=== PATIENT | male | born 1930 | race Caucasian/White ===

== ENCOUNTER 2017-10-17 14:53 | Inpatient (IN) | payer OTHER ==
[2017-10-17 15:26] VITALS: BMI 40.4
--- NOTE | 2017-10-17 15:26 | PDOC ---
Rapid Medical Evaluation Time Seen by Provider: 10/17/17 15:22 Medical Evaluation: Allergies Allergy/AdvReac Type Severity Reaction Status Date / Time No Known Allergies Allergy Verified 09/24/12 09:22 10/17/17 15:23 87 year old male with a history of GERD, HTN, HLD here with abdominal cramping pain and 3 episodes of bright red blood per rectum today. V/s unremarkable. Conjunctivae pale. Abdomen soft, non-tender. -EKG -CXR -Labs including, CBC, CMP, PT/INR, T&S -To Main ED for further evaluation
[2017-10-17 16:07] LABS: URINE APPEARANCE CLEAR; URINE BILIRUBIN NEGATIVE (NEGATIVE); URINE BLOOD NEGATIVE (NEGATIVE); URINE COLOR LTYELLOW; URINE GLUCOSE (UA) NEGATIVE (NEGATIVE); URINE KETONE NEGATIVE (NEGATIVE); URINE LEUK ESTERASE NEGATIVE (NEGATIVE); URINE NITRITE NEGATIVE (NEGATIVE); URINE PROTEIN NEGATIVE (NEGATIVE); URINE UROBILINOGEN NEGATIVE mg/dL (0.2-1.0)
[2017-10-17 16:21] LABS: BASO % 0.3 % (0-2.0); EOS % 0.5 % (0-4.5); HEMATOCRIT 35.2 % (35.4-49); HEMOGLOBIN 11.8 GM/dL (11.7-16.9); LYMPH % 6.8 % (8-40); MCH 29.9 pg (25.7-33.7); MCHC 33.5 g/dl (32.0-35.9); MEAN CELL VOLUME 89.3 fl (80-96); MEAN PLT VOLUME 8.8 fl (7.5-11.1); NEUT % 88.4 % (42.8-82.8); PLATELET COUNT 157 K/MM3 (134-434); RBC 3.94 M/mm3 (4.00-5.60); WHITE BLOOD COUNT 8.6 K/mm3 (4.0-10.0)
[2017-10-17 16:53] LABS: INR 1.12 (0.82-1.09); PROTHROMBIN TIME (PATIENT) 12.6 SEC (9.98-11.88)
[2017-10-17 16:59] LABS: ALBUMIN 3.6 g/dl (3.4-5.0); ANION GAP 7 (8-16); BILIRUBIN,TOTAL 0.7 mg/dL (0.2-1.0); CALCIUM 8.2 mg/dL (8.5-10.1); CHLORIDE 104 mmol/L (98-107); CO2 29 mmol/L (21-32); CREATININE 1.3 mg/dL (0.7-1.3); GLUCOSE,RANDOM 108 mg/dL (74-106); POTASSIUM 4.4 mmol/L (3.5-5.1); SGPT/ALT 22 U/L (12-78); SODIUM 140 mmol/L (136-145); TOT PROT 7.1 g/dl (6.4-8.2)
--- NOTE | 2017-10-17 17:30 | EKG ---
Test Reason : Blood Pressure : / mmHG Vent. Rate : 077 BPM Atrial Rate : 077 BPM P-R Int : 136 ms QRS Dur : 150 ms QT Int : 418 ms P-R-T Axes : 000 -76 098 degrees QTc Int : 473 ms AV dual-paced rhythm ABNORMAL ECG WHEN COMPARED WITH ECG OF 17-NOV-2014 21:26, ELECTRONIC VENTRICULAR PACEMAKER HAS REPLACED SINUS RHYTHM VENT. RATE HAS INCREASED BY 27 BPM Confirmed by Gabino Garcia ([id number]) on 10/17/2017 5:30:04 PM Referred By: Confirmed By:Gabino Garcia
--- NOTE | 2017-10-17 17:46 | PDOC ---
History of Present Illness - General Chief Complaint: Rectal Bleed Stated Complaint: RECTAL BLEED Time Seen by Provider: 10/17/17 15:22 History Source: Patient Exam Limitations: No Limitations - History of Present Illness Travel History: No Initial Comments: 10/17/17 17:42 87-year-old male presents the ED with complaints of rectal bleeding 3 since this morning. Patient states initially had some straining with bowel movements along with constipation for the past 2 days and states this morning when he moved his bowels noted some bright red blood within the toilet on paper. Patient states had mild left lower quadrant cramping with episodes. Patient states then went about his day and while out experienced a crampy again and it went to the bathroom and noticed bright red blood in the toilet. Patient states the incident occurred again later on the day accompanied cramping and rectal bleeding. Patient states history of hemorrhoidectomy years ago but denies any history of anal fissures. Pt with hx of diverticulosis, colon polyp, PUD, and gastritis. Patient states was seen by Dr. Quintero in the past with his last colonoscopy being approximately 18 months ago. Patient states was told to come by his PCP Dr. Stafford for further evaluation. Patient currently denies chest pain, shortness of breath, weakness, dizziness, or fever. Patient states currently at antibiotics for a right lower extremity wound when he goes to wound care weekly for. Timing/Duration: reports: intermittent Quality: reports: mild, cramping Abdominal Pain Onset Location: reports: LLQ, periumbilical Pain Radiation: reports: no radiation Aggravating Factors: improves with: Defecation Alleviating Factors: improves with: None Past History - Travel Traveled outside of the country in the last 30 days: No Close contact w/someone who was outside of country & ill: No - Past Medical History Allergies/Adverse Reactions: Allergies Allergy/AdvReac Type Severity Reaction Status Date / Time No Known Allergies Allergy Verified 10/17/17 15:23 Home Medications: Ambulatory Orders Simvastatin [Zocor -] 20 mg PO HS 09/24/12 Omeprazole [Prilosec (RX)] 20 mg PO BID #0 capsule. 09/25/12 Allopurinol [Zyloprim -] 300 mg PO DAILY 12/27/12 Polyethylene Glycol 3350 [Miralax 119 gm Btl -] 17 gm PO DAILY #1 bottle Tamsulosin HCl [Flomax] 0.4 mg PO DAILY #30 capsule 10/19/17 metroNIDAZOLE [Flagyl -] 500 mg PO TID #18 tablet 10/19/17 Anemia: No Asthma: No Cancer: No Cardiac Disorders: No CVA: No COPD: No CHF: No Dementia: No Diabetes: No GI Disorders: Yes (COLON POLYP, HH, DIVERTICULOSIS, GASTRITIS, PEPTIC ULCER) Disorders: Yes (GOUT) HTN: Yes Hypercholesterolemia: Yes Liver Disease: No Seizures: No Thyroid Disease: No - Surgical History Abdominal Surgery: No Appendectomy: Yes (2012) Cardiac Surgery: Yes (PPM) Cholecystectomy: No Lung Surgery: No Neurologic Surgery: No Orthopedic Surgery: No - Suicide/Smoking/Psychosocial Hx Smoking Status: No Smoking History: Former smoker Have you smoked in the past 12 months: No Number of Cigarettes Smoked Daily: 0 If you are a former smoker, when did you quit?: over 35 years ago Information on smoking cessation initiated: No Hx Alcohol Use: Yes (Occasional) Drug/Substance Use Hx: No Substance Use Type: None Hx Substance Use Treatment: No Review of Systems - Review of Systems Able to Perform ROS?: Yes Constitutional: No: Symptoms Reported HEENTM: No: Symptoms Reported Respiratory: No: Symptoms reported Cardiac (ROS): No: Symptoms Reported ABD/GI: Yes: Rectal Bleeding, Abdominal cramping : No: Symptoms Reported Musculoskeletal: No: Symptoms Reported Integumentary: No: Symptoms Reported Neurological: No: Symptoms reported Endocrine: No: Symptoms Reported Hematologic/Lymphatic: No: Symptoms Reported *Physical Exam - Vital Signs Last Vital Signs Temp Pulse Resp BP Pulse Ox 98.3 F 80 20 110/60 98 10/17/17 17:10 10/17/17 17:10 10/17/17 17:10 10/17/17 17:10 10/17/17 17:10 - Physical Exam General Appearance: Yes: Nourished, Appropriately Dressed. No: Apparent Distress HEENT: positive: Pale Conjunctivae (mild) Respiratory/Chest: positive: Lungs Clear, Normal Breath Sounds. negative: Respiratory Distress, Accessory Muscle Use Cardiovascular: positive: Regular Rhythm, Regular Rate. negative: Murmur Gastrointestinal/Abdominal: positive: Normal Bowel Sounds, Soft. negative: Distended, Tenderness Rectal Exam: positive: normal rectal tone, heme positive stool (brb. No visible or palpable hemorrhoid. Rectal vault smooth without tenderness). negative: hemorrhoids Extremity: positive: Normal Capillary Refill, Pedal Edema (nonpitting bell) Integumentary: positive: Normal Color, Dry, Warm Neurologic: positive: Normal Mood/Affect, Motor Strength 5/5 (ambulatory) ED Treatment Course - LABORATORY CBC & Chemistry Diagram: 10/19/17 07:07 10/19/17 07:07 - ADDITIONAL ORDERS Additional order review: Laboratory Results 10/17/17 10/17/17 10/17/17 16:54 15:41 15:41 PT with INR 12.60 H INR 1.12 Urine Color Urine Appearance Urine pH Ur Specific [place] Urine Protein Urine Glucose (UA) Urine Ketones Urine Blood Urine Nitrite Urine Bilirubin Urine Urobilinogen Ur Leukocyte Esterase Stool Occult Blood Positive Blood Type A POSITIVE Antibody Screen Negative 10/17/17 15:35 PT with INR INR Urine Color Ltyellow Urine Appearance Clear Urine pH 5.0 Ur Specific [place] 1.010 Urine Protein Negative Urine Glucose (UA) Negative Urine Ketones Negative Urine Blood Negative Urine Nitrite Negative Urine Bilirubin Negative Urine Urobilinogen Negative Ur Leukocyte Esterase Negative Stool Occult Blood Blood Type Antibody Screen 10/17/17 15:41 RBC 3.94 L MCV 89.3 MCHC 33.5 RDW 15.0 MPV 8.8 Neutrophils % 88.4 H Lymphocytes % 6.8 L D Monocytes % 4.0 Eosinophils % 0.5 Basophils % 0.3 - RADIOLOGY Radiology Studies Ordered: Category Date Time Status ABDOMEN & PELVIS CT W/O CONTR [CT] Stat CT Scan 10/17/17 17:24 Ordered Medical Decision Making - Medical Decision Making 10/17/17 17:50 Patient here for evaluation of bright red blood 3 upon defecation today. Patient on exam had CT of 108/47 with conjunctiva. Patient also had bright red blood within the rectal vault patient ordered for type and screen, labs, stool cultures secondary to recent antibiotics to rule out infectious process, abdominal CT with by mouth contrast and IV fluids 10/17/17 17:52 Laboratory Tests 09/25/12 11/17/14 11/18/14 11:00 21:30 05:35 Hgb 11.7 12.7 11.8 Urine Blood Urine Nitrite Ur Leukocyte Esterase Stool Occult Blood Blood Type Antibody Screen 10/17/17 10/17/17 10/17/17 15:35 15:41 15:41 Hgb 11.8 Urine Blood Negative Urine Nitrite Negative Ur Leukocyte Esterase Negative Stool Occult Blood Blood Type A POSITIVE Antibody Screen Negative 10/17/17 16:54 Hgb Urine Blood Urine Nitrite Ur Leukocyte Esterase Stool Occult Blood Positive Blood Type Antibody Screen 10/17/17 18:[address] at 730pm. *DC/Admit/Observation/Transfer Diagnosis at time of Disposition: Rectal bleed - Discharge Dispostion Condition at time of disposition: Stable - Prescriptions - Referrals - Patient Instructions - Post Discharge Activity
[2017-10-17] MEDS ORDERED: SODIUM CHLORIDE 1,000 ML IV STA (17:51)
[2017-10-17 18:40] LABS: SGOT/AST 16 U/L (15-37)
[2017-10-17 18:41] LABS: ALK PHOS 79 U/L (45-117)
--- NOTE | 2017-10-17 19:41 | PDOC ---
ED Treatment Course - LABORATORY CBC & Chemistry Diagram: 10/17/17 15:41 10/17/17 15:41 - ADDITIONAL ORDERS Additional order review: Laboratory Results 10/17/17 10/17/17 10/17/17 16:54 15:41 15:41 PT with INR INR Sodium 140 Potassium 4.4 Chloride 104 Carbon Dioxide 29 Anion Gap 7 L Creatinine 1.3 Creat Clearance w eGFR 52.47 Random Glucose 108 H Calcium 8.2 L Total Bilirubin 0.7 D AST 16 D ALT 22 D Alkaline Phosphatase 79 D Total Protein 7.1 Albumin 3.6 Urine Color Urine Appearance Urine pH Ur Specific [place] Urine Protein Urine Glucose (UA) Urine Ketones Urine Blood Urine Nitrite Urine Bilirubin Urine Urobilinogen Ur Leukocyte Esterase Stool Occult Blood Positive Blood Type A POSITIVE Antibody Screen Negative 10/17/17 10/17/17 15:41 15:35 PT with INR 12.60 H INR 1.12 Sodium Potassium Chloride Carbon Dioxide Anion Gap Creatinine Creat Clearance w eGFR Random Glucose Calcium Total Bilirubin AST ALT Alkaline Phosphatase Total Protein Albumin Urine Color Ltyellow Urine Appearance Clear Urine pH 5.0 Ur Specific [place] 1.010 Urine Protein Negative Urine Glucose (UA) Negative Urine Ketones Negative Urine Blood Negative Urine Nitrite Negative Urine Bilirubin Negative Urine Urobilinogen Negative Ur Leukocyte Esterase Negative Stool Occult Blood Blood Type Antibody Screen 10/17/17 15:41 RBC 3.94 L MCV 89.3 MCHC 33.5 RDW 15.0 MPV 8.8 Neutrophils % 88.4 H Lymphocytes % 6.8 L D Monocytes % 4.0 Eosinophils % 0.5 Basophils % 0.3 - Medications Given in the ED: ED Medications Discontinued Medications Generic Name Dose Route Start Last Admin Trade Name Freq PRN Reason Stop Dose Admin Sodium Chloride 1,000 mls @ 1,000 mls/hr 10/17/17 17:51 10/17/17 18:29 Normal Saline - IV 10/17/17 18:50 1,000 mls/hr ASDIR STA Administration Progress Note - Progress Note Progress Note: I have received report from TASHI Taylor regarding this patient. Pt's initial chief complaint: rectal bleeding Pt's work up completed prior to sign out: labs, guiac, EKG, CXR Pt treatment given from prior staff: IV fluids Pt plan to be completed: Awaiting CT of abd/pelvis Dispo: Most likely admission to Dr. Stafford Medical Decision Making - Medical Decision Making A/P: 87 y/o afebrile male with 3 episodes of rectal bleeding since this morning. Patient was initially evaluated by SIGNAL MANAGER Claudia. EKG and labs done - both stable. Dr. Stafford aware of the patient and requesting call back for admission upon completion of CT scan of abd/pelvis. CT abd/pelvis IMPRESSION: No bowel obstruction. Diverticulosis with no evidence of diverticulitis. Mild wall thickening in the proximal sigmoid colon and pericolonic fat stranding along the descending colon/proximal sigmoid colon are grossly similar to 10/04/12 CT, likely chronic changes of diverticulosis. Cholelithiasis. No CT evidence of acute cholecystitis. No CBD dilatation. Spoke with Dr. Leavitt. She accepts admission. Wants 2 large bores IVs. Patient and family made aware of the plan will admit to tele with james and terri consults. *DC/Admit/Observation/Transfer Diagnosis at time of Disposition: Rectal bleed - Discharge Dispostion Condition at time of disposition: Stable Admit: Yes - Referrals - Patient Instructions - Post Discharge Activity
--- NOTE | 2017-10-17 21:36 | PN ---
Teaching Attending Note Name of Resident: Ld Nuñez ATTENDING PHYSICIAN STATEMENT I saw and evaluated the patient. I reviewed the resident's note and discussed the case with the resident. I agree with the resident's findings and plan as documented. SUBJECTIVE: 87 M with pmhx of GERD, HTN, HLD, RLE wound on anx who presents with BRBPR. States he had arond 3 movements of diarrhea and bright red bloos with it. Denies any dizziness or lightheadedness. No chest pain or pressure. Pt,. has been on Antibiotics of a RLE wound, but does not know which ones OBJECTIVE: Physical: VS: Vital Signs Period Temp Pulse Resp BP Sys/Kilpatrick Pulse Ox Last 24 Hr 97.6 F-98.3 F 64-80 18-20 108-110/47-60 96-98 GEN: NAD, Resting in bed, AAox3 HEENT:NCAT, PERRL, throat without erythema or exudates CARD: RRR S1, S2 RESP: CTAB ABD: BSx4, NTd to palpation EXT:- C/C/E, RLE wound RECTAL: Deferred by patient CBCD WBC 8.6 K/mm3 (4.0-10.0) D 10/17/17 15:41 RBC 3.94 M/mm3 (4.00-5.60) L 10/17/17 15:41 Hgb 11.8 GM/dL (11.7-16.9) 10/17/17 15:41 Hct 35.2 % (35.4-49) L 10/17/17 15:41 MCV 89.3 fl (80-96) 10/17/17 15:41 MCHC 33.5 g/dl (32.0-35.9) 10/17/17 15:41 RDW 15.0 % (11.9-15.9) 10/17/17 15:41 Plt Count 157 K/MM3 (134-434) D 10/17/17 15:41 MPV 8.8 fl (7.5-11.1) 10/17/17 15:41 CMP Sodium 140 mmol/L (136-145) 10/17/17 15:41 Potassium 4.4 mmol/L (3.5-5.1) 10/17/17 15:41 Chloride 104 mmol/L (98-107) 10/17/17 15:41 Carbon Dioxide 29 mmol/L (21-32) 10/17/17 15:41 Anion Gap 7 (8-16) L 10/17/17 15:41 Creatinine 1.3 mg/dL (0.7-1.3) 10/17/17 15:41 Creat Clearance w eGFR 52.47 (>60) 10/17/17 15:41 Calcium 8.2 mg/dL (8.5-10.1) L 10/17/17 15:41 Total Bilirubin 0.7 mg/dL (0.2-1.0) D 10/17/17 15:41 AST 16 U/L (15-37) D 10/17/17 15:41 ALT 22 U/L (12-78) D 10/17/17 15:41 Alkaline Phosphatase 79 U/L (45-117) D 10/17/17 15:41 Total Protein 7.1 g/dl (6.4-8.2) 10/17/17 15:41 Albumin 3.6 g/dl (3.4-5.0) 10/17/17 15:41 ABD/PELVIS CT: Incompletely imaged pericardial effusion, likely small in size, Cardimegaly, mod. coronary calcific atherosclerosis and bipolar ppm leads. Kidneys Cyst. Mild fusiform aneyrysmal enlargement of infrarenal abdominal aorta measuring 2 cm. L. Common iliac measuring 2.4 cm in diameter. ASSESSMENT AND PLAN: 87 M with pmhx of GERD, HTN, HLD, RLE wound on anx who presents with BRBPR 1.) BRBPR - NPO - 2 Large Bore IVs - Type & Screen - Coags - CBC Q8 - GI Consult - Hold ASA - Transfuse Hgb<8 2.) Diarrhea - On abx (pt. does not know which ones) - C. Diff, Stool Studies - Flagyl 3.) RLE wound - ID consult - Unknown Which abx. pt was on - Wound care consult for reccs 4.) Kidney Cysts - Outpt. Fu 5.) HLD - Hold Statin 6.) Dvt Ppx - [facility] Place in [place]
--- NOTE | 2017-10-17 22:42 | HP ---
CHIEF COMPLAINT: Rectal bleed PCP: Dr salazar HISTORY OF PRESENT ILLNESS: 87-year-old male with PMH of diverticulosis and constipation came to hospital with a complaint of rectal bleed. Patient reports that he has 3 episodes since morning with some abdominal cramps, large in quantity, mixed with watery stool, Denies pain on defecation, denies pain abdomen, Denies nausea, vomiting, no pain on defecation. Denies fever and chills , denies loss of weight. Denies loss of apatite, Denies feeling of incomplete defecation, Denies morning diarrhoea. Denies easy bruising and bleeding, Denies any similar previous episodes. Patient also reports that he is on antibiotics from last 3 week for wound on his leg. Also reports colonoscopy was done in 2016 and it showed diverticulosis and polys ER course was notable for: (1)cbc, cmp, inr (2)CT abdomen Recent Travel: no PAST MEDICAL HISTORY: htn, hld, gerd, gout PAST SURGICAL HISTORY: LL varicose vein, haemorrhoidectomy, appendectomy, pace maker in 2014 Social History: Smoking: smoked for 30 years 1/2 pack a day. stopped 30 years ago Alcohol: occasional Drugs: no Family History: father has stomach cancer diagnosed at age of 79 Allergies No Known Allergies Allergy (Verified 10/17/17 15:23) HOME MEDICATIONS: Home Medications Medication Instructions Recorded Amlodipine Besylate [Norvasc -] 5 mg PO DAILY 09/24/12 Furosemide [Lasix -] 40 mg PO DAILY 09/24/12 Simvastatin [Zocor -] 20 mg PO HS 09/24/12 Terazosin HCl 10 mg PO HS 09/24/12 Omeprazole [Prilosec (RX)] 20 mg PO BID #0 capsule. 09/25/12 Allopurinol [Zyloprim -] 300 mg PO DAILY 12/27/12 Aspirin [ASA -] 81 mg PO DAILY #0 tab.chew 01/01/16 Polyethylene Glycol 3350 [Miralax 17 gm PO DAILY #1 bottle 01/01/16 (For Daily Use) -] Wheat Dextrin [Benefiber] 1 each PO BID #0 powd.pack 01/01/16 Losartan Potassium 100 mg PO DAILY 10/17/17 REVIEW OF SYSTEMS CONSTITUTIONAL: Absent: fever, chills, diaphoresis, generalized weakness, HEENT: Absent: rhinorrhea, nasal congestion, throat pain, throat swelling, CARDIOVASCULAR: Absent: chest pain, syncope, palpitations, irregular heart rate, RESPIRATORY: Absent: cough, shortness of breath, dyspnea with exertion, GASTROINTESTINAL: Absent: abdominal pain, abdominal distension, nausea, vomiting, d GENITOURINARY: Absent: dysuria, frequency, urgency, hesitancy, hematuria, flank pain, genital pain MUSCULOSKELETAL: chronic b/l lower limb swelling SKIN: Absent: rash, itching, pallor HEMATOLOGIC/IMMUNOLOGIC: Absent: easy bleeding, easy bruising, ENDOCRINE: Absent: unexplained weight gain, unexplained weight loss, PHYSICAL EXAMINATION Vital Signs - 24 hr 10/17/17 10/17/17 10/17/17 15:23 16:55 17:10 Temperature 97.6 F 98.3 F Pulse Rate 79 Pulse Rate [ 80 Left Radial] Respiratory 18 20 Rate Blood Pressure 108/47 Blood Pressure 110/60 [Left Arm] O2 Sat by Pulse 96 98 98 Oximetry (%) 10/17/17 10/17/17 18:29 19:34 Temperature Pulse Rate Pulse Rate [ 64 Left Radial] Respiratory 20 Rate Blood Pressure Blood Pressure 108/59 [Left Arm] O2 Sat by Pulse 97 96 Oximetry (%) GENERAL: Awake, alert, and fully oriented, in no acute distress. HEAD: Normal with no signs of trauma. EYES: Pupils equal, round and reactive to light, extraocular movements intact, sclera anicteric, conjunctiva clear. No lid lag. EARS, NOSE, THROAT: Ears normal, nares patent, oropharynx clear without exudates. Moist mucous membranes. NECK: Normal range of motion, no JVD, or masses. LUNGS: Breath sounds equal, clear to auscultation bilaterally. No wheezes, and no crackles. No accessory muscle use. HEART: s1s2 normal ABDOMEN: Soft, nontender, not distended, normoactive bowel sounds, no guarding, no rebound, no masses. Rectal exam no active bleed, UPPER EXTREMITIES: 2+ pulses, warm, well-perfused. LOWER EXTREMITIES: warm, No calf tenderness.chronic edema b/l lower limb, Right leg has bandage for wound SKIN: Warm, dry, Laboratory Results - last 24 hr 10/17/17 10/17/17 10/17/17 15:35 15:41 15:41 WBC 8.6 D RBC 3.94 L Hgb 11.8 Hct 35.2 L MCV 89.3 MCH 29.9 MCHC 33.5 RDW 15.0 Plt Count 157 D MPV 8.8 Neutrophils % 88.4 H Lymphocytes % 6.8 L D Monocytes % 4.0 Eosinophils % 0.5 Basophils % 0.3 PT with INR 12.60 H INR 1.12 Sodium Potassium Chloride Carbon Dioxide Anion Gap Creatinine Creat Clearance w eGFR Random Glucose Calcium Total Bilirubin AST ALT Alkaline Phosphatase Total Protein Albumin Urine Color Ltyellow Urine Appearance Clear Urine pH 5.0 Ur Specific [place] 1.010 Urine Protein Negative Urine Glucose (UA) Negative Urine Ketones Negative Urine Blood Negative Urine Nitrite Negative Urine Bilirubin Negative Urine Urobilinogen Negative Ur Leukocyte Esterase Negative Stool Occult Blood Blood Type Antibody Screen 10/17/17 10/17/17 10/17/17 15:41 15:41 16:54 WBC RBC Hgb Hct MCV MCH MCHC RDW Plt Count MPV Neutrophils % Lymphocytes % Monocytes % Eosinophils % Basophils % PT with INR INR Sodium 140 Potassium 4.4 Chloride 104 Carbon Dioxide 29 Anion Gap 7 L Creatinine 1.3 Creat Clearance w eGFR 52.47 Random Glucose 108 H Calcium 8.2 L Total Bilirubin 0.7 D AST 16 D ALT 22 D Alkaline Phosphatase 79 D Total Protein 7.1 Albumin 3.6 Urine Color Urine Appearance Urine pH Ur Specific [place] Urine Protein Urine Glucose (UA) Urine Ketones Urine Blood Urine Nitrite Urine Bilirubin Urine Urobilinogen Ur Leukocyte Esterase Stool Occult Blood Positive Blood Type A POSITIVE Antibody Screen Negative ASSESSMENT/PLAN: 87-year-old male with PMH of diverticulosis and constipation on antibiotics for RLE wound for 3 week came to hospital with a complaint of rectal bleed. Rectal bleed. : multifactorial diverticular bleed, angiodysplasia, polyp, monitor haemoglobin monitor vitals. monitor intake and output type and screen INR 1.1 get aptt two large bore iV canula NPO for now hold aspirin GI consult transfuse if Hb <8 Diarrhoea stool culture, ova and parasit stool for c diff.( on antibiotic but dont know which one, last one taken this morning) or diarrhoea could also be from blood. will give him metronidazole for c diff cover R lower extremity wound comes to [facility] every . Follows Dr Cm HTN on losartan 100mg daily toprol xl 25mg daily Terazosin hcl 10mg daily hs hold BP meds for now. GERD on omeprazole 20 mg prn HLD hold statin for now on simvastatin 20mg daily h/o GOUT on allopurinol 300mg daily hold for now patient is npo dependent edema b/l lower limb on lasix electrolyte: repeat in am nutrition : npo dvt pro scd gi pro: pepcid dispo: med surg Visit type - Emergency Visit Emergency Visit: Yes Care time: The patient presented to the Emergency Department on the above date and was hospitalized for further evaluation of their emergent condition. - New Patient This patient is new to me today: Yes Date on this admission: 10/17/17 - Critical Care Critical Care patient: No
[2017-10-17] MEDS ORDERED: metroNIDAZOLE 250 MG TABLET ONE (23:06)
[2017-10-17 23:20] LABS: BLOOD UREA NITROGEN 40 mg/dL (7-18)
[2017-10-17] MEDS: metroNIDAZOLE 250 MG TABLET PO SCH (23:23)
[2017-10-18 07:26] LABS: BASO % 0.5 % (0-2.0); EOS % 2.2 % (0-4.5); HEMATOCRIT 31.5 % (35.4-49); HEMOGLOBIN 10.4 GM/dL (11.7-16.9); MCH 29.6 pg (25.7-33.7); MCHC 33.1 g/dl (32.0-35.9); MEAN CELL VOLUME 89.3 fl (80-96); MEAN PLT VOLUME 8.6 fl (7.5-11.1); MONO % 7.2 % (3.8-10.2); NEUT % 76.1 % (42.8-82.8); PLATELET COUNT 125 K/MM3 (134-434); RBC 3.52 M/mm3 (4.00-5.60); RDW 14.8 % (11.9-15.9); WHITE BLOOD COUNT 5.4 K/mm3 (4.0-10.0)
[2017-10-18] MEDS: metroNIDAZOLE 250 MG TABLET PO SCH ×3 (08:00→21:35)
[2017-10-18] MEDS: SODIUM CHLORIDE 1,000 ML IV SCH (08:00)
[2017-10-18 08:05] LABS: ALBUMIN 3.3 g/dl (3.4-5.0); ANION GAP 6 (8-16); BLOOD UREA NITROGEN 38 mg/dL (7-18); CALCIUM 7.9 mg/dL (8.5-10.1); CHLORIDE 105 mmol/L (98-107); CO2 30 mmol/L (21-32); CREATININE 1.1 mg/dL (0.7-1.3); GLUCOSE,RANDOM 100 mg/dL (74-106); PHOSPHOROUS 3.3 mg/dL (2.5-4.9); POTASSIUM 4.6 mmol/L (3.5-5.1); SGOT/AST 16 U/L (15-37); SGPT/ALT 20 U/L (12-78); SODIUM 141 mmol/L (136-145)
[2017-10-18 08:06] LABS: ALK PHOS 72 U/L (45-117); BILIRUBIN,TOTAL 0.9 mg/dL (0.2-1.0); TOT PROT 6.3 g/dl (6.4-8.2)
[2017-10-18] MEDS ORDERED: metroNIDAZOLE 250 MG TABLET ONE (08:10)
--- NOTE | 2017-10-18 10:21 | PN ---
Progress Note, Physician History of Present Illness: 87-year-old male with PMH of diverticulosis and constipation came to hospital with a complaint of rectal bleed. Patient reports that he has 3 episodes since morning with some abdominal cramps, large in quantity, mixed with watery stool , Denies pain on defecation, denies pain abdomen, Denies nausea, vomiting, no pain on defecation. Denies fever and chills, denies loss of weight. Denies loss of apatite, Denies feeling of incomplete defecation, Denies morning diarrhoea. Denies easy bruising and bleeding, Denies any similar previous episodes. Patient also reports that he is on antibiotics from last 3 week for wound on his leg. Also reports colonoscopy was done in 2016 and it showed diverticulosis and polyps - Current Medication List Current Medications: Active Medications Famotidine/Sodium Chloride (Pepcid 20 Mg Premixed Ivpb -) 20 mg in 50 mls @ 100 mls/hr IVPB BID SABINA Sodium Chloride (Normal Saline -) 1,000 mls @ 50 mls/hr IV ASDIR [facility] Stop: 10/19/17 06:49 Last Admin: 10/18/17 08:00 Dose: 50 mls/hr Metronidazole (Flagyl -) 500 mg PO TID [facility] Last Admin: 10/18/17 08:00 Dose: 500 mg - Objective Vital Signs: Vital Signs Temperature 97.5 F L 10/18/17 07:02 Pulse Rate 59 L 10/18/17 08:30 Respiratory Rate 16 10/18/17 08:30 Blood Pressure 115/54 10/18/17 08:30 O2 Sat by Pulse Oximetry (%) 100 10/18/17 08:30 Cardiovascular: Yes: Murmur, S1, S2 Respiratory: Yes: Regular, CTA Bilaterally Gastrointestinal: Yes: Normal Bowel Sounds, Soft. No: Tenderness Edema: No Labs: CBC, BMP 10/18/17 06:00 10/18/17 06:00 INR, PTT INR 1.12 (0.82-1.09) 10/17/17 15:41 Problem List - Problems (1) S/P placement of cardiac pacemaker Assessment/Plan: MONITOR Code(s): Z95.0 - PRESENCE OF CARDIAC PACEMAKER (2) Rectal bleed Assessment/Plan: R/O C.DIF FOLLOW CBC GI CONSULT HOLD OFF ON AC Code(s): K62.5 - HEMORRHAGE OF ANUS AND RECTUM (3) HTN (hypertension) Code(s): I10 - ESSENTIAL (PRIMARY) HYPERTENSION Qualifiers: Hypertension type: essential hypertension Qualified Code(s): I10 - Essential (primary) hypertension
--- NOTE | 2017-10-18 11:12 | CONSULT ---
Addendum entered and electronically signed by Jonathan Irvin, RESIDENT 15:34: rectal exam:small amount of brown stool with no blood in rectal vault. internal hemorrhoids noted. large smooth prostate. Original Note: Consultation: REQUESTING PROVIDER: CONSULT REQUEST: We have been asked to medically evaluate this patient for GI. HISTORY OF PRESENT ILLNESS: 87 yo M presented with bright red blood per rectum. He states that yesterday he had some cramping pain then proceeded to have 3 bloody BM's. Stool was brown and loose with bright red blood, enough to fill toilet. Since then he has had no blood in BM's but does stain paper when he wipes. He is not currently on any blood thinners except a 81mg ASA he has been taking for several years. He has history of bleeding hemorrhoids s/p hemorrhoidectomy. His last colonoscopy was 12/25 that showed recurrent hemorrhoids, polyps and diverticulosis. Family history is significant for stomach cancer in his father. Of note he is seen at wound care for RLE cellulits and has been on Abx for several weeks. No recent travel. Denies CP,MORROW, palpitations, fevers,abdominal pain, N/V/D/C. PMHx: HTN, HLD, BPH, Gout, GERD and CHF PSx: Hemorrhoidectomy, pacemaker, removal of vericose veins, and appendectomy. Social: 25 pack year h/o smoking(quit 37 y/a), social drinker, no drugs. 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 FHx: father(stomach cancer) REVIEW OF SYSTEMS: CONSTITUTIONAL: Absent: fever, chills, diaphoresis, generalized weakness, malaise, loss of appetite, weight change HEENT: Absent: rhinorrhea, nasal congestion, throat pain, throat swelling, difficulty swallowing, mouth swelling, ear pain, eye pain, visual changes CARDIOVASCULAR: Absent: chest pain, syncope, palpitations, irregular heart rate, lightheadedness , peripheral edema RESPIRATORY: Absent: cough, shortness of breath, dyspnea with exertion, orthopnea, wheezing, stridor, hemoptysis GASTROINTESTINAL:+hematochezia Absent: abdominal pain, abdominal distension, nausea, vomiting, diarrhea, constipation, melena, GENITOURINARY: Absent: dysuria, frequency, urgency, hesitancy, hematuria, flank pain, genital pain MUSCULOSKELETAL: Absent: myalgia, arthralgia, joint swelling, back pain, neck pain SKIN: Absent: rash, itching, pallor HEMATOLOGIC/IMMUNOLOGIC: Absent: easy bleeding, easy bruising, lymphadenopathy, frequent infections ENDOCRINE: Absent: unexplained weight gain, unexplained weight loss, heat intolerance, cold intolerance NEUROLOGIC: Absent: headache, focal weakness or paresthesias, dizziness, unsteady gait, seizure, mental status changes, bladder or bowel incontinence PSYCHIATRIC: Absent: anxiety, depression, suicidal or homicidal ideation, hallucinations. PHYSICAL EXAMINATION Vital Signs - 24 hr 10/17/17 10/17/17 10/17/17 15:23 16:55 17:10 Temperature 97.6 F 98.3 F Pulse Rate 79 Pulse Rate [ Apical] Pulse Rate [ 80 Left Radial] Respiratory 18 20 Rate Blood Pressure 108/47 Blood Pressure 110/60 [Left Arm] O2 Sat by Pulse 96 98 98 Oximetry (%) 10/17/17 10/17/17 10/18/17 18:29 19:34 06:30 Temperature 98.1 F Pulse Rate Pulse Rate [ Apical] Pulse Rate [ 64 86 Left Radial] Respiratory 20 19 Rate Blood Pressure Blood Pressure 108/59 116/84 [Left Arm] O2 Sat by Pulse 97 96 98 Oximetry (%) 10/18/17 10/18/17 10/18/17 07:02 08:30 10:33 Temperature 97.5 F L Pulse Rate 61 Pulse Rate [ 59 L Apical] Pulse Rate [ 64 Left Radial] Respiratory 14 16 18 Rate Blood Pressure 132/61 Blood Pressure 133/71 115/54 [Left Arm] O2 Sat by Pulse 98 100 95 Oximetry (%) GENERAL:AAOx3, NAD HEAD: NC/AT. EYES: PERRLA, EOMI, scleral anicteric EARS, NOSE, THROAT: Moist mucous membranes. NECK: supple , no JVD LUNGS:CTAB, no wheezing or rales. HEART: RRR, NL S1S2, no m/g/r ABDOMEN: Obese,Soft, NT/ND, NL BS, no masses Rectal exam MUSCULOSKELETAL: No CVA tenderness. LOWER EXTREMITIES: 2+ pulses,chronic venous stasis changes BL LE. Right LE bandaged . 2+ EDEMA BL NEUROLOGICAL: Cranial nerves II-XII intact. Normal speech. PSYCHIATRIC: Cooperative. Good eye contact. Appropriate mood and affect. Laboratory Results - last 24 hr 10/17/17 10/17/17 10/17/17 15:35 15:41 15:41 WBC 8.6 D RBC 3.94 L Hgb 11.8 Hct 35.2 L MCV 89.3 MCH 29.9 MCHC 33.5 RDW 15.0 Plt Count 157 D MPV 8.8 Neutrophils % 88.4 H Lymphocytes % 6.8 L D Monocytes % 4.0 Eosinophils % 0.5 Basophils % 0.3 PT with INR 12.60 H INR 1.12 PTT (Actin FS) Sodium Potassium Chloride Carbon Dioxide Anion Gap BUN Creatinine Creat Clearance w eGFR Random Glucose Calcium Phosphorus Magnesium Total Bilirubin AST ALT Alkaline Phosphatase Total Protein Albumin Urine Color Ltyellow Urine Appearance Clear Urine pH 5.0 Ur Specific [place] 1.010 Urine Protein Negative Urine Glucose (UA) Negative Urine Ketones Negative Urine Blood Negative Urine Nitrite Negative Urine Bilirubin Negative Urine Urobilinogen Negative Ur Leukocyte Esterase Negative Stool Occult Blood Blood Type Antibody Screen 10/17/17 10/17/17 10/17/17 15:41 15:41 16:54 WBC RBC Hgb Hct MCV MCH MCHC RDW Plt Count MPV Neutrophils % Lymphocytes % Monocytes % Eosinophils % Basophils % PT with INR INR PTT (Actin FS) Sodium 140 Potassium 4.4 Chloride 104 Carbon Dioxide 29 Anion Gap 7 L BUN 40 H Creatinine 1.3 Creat Clearance w eGFR 52.47 Random Glucose 108 H Calcium 8.2 L Phosphorus Magnesium Total Bilirubin 0.7 D AST 16 D ALT 22 D Alkaline Phosphatase 79 D Total Protein 7.1 Albumin 3.6 Urine Color Urine Appearance Urine pH Ur Specific [place] Urine Protein Urine Glucose (UA) Urine Ketones Urine Blood Urine Nitrite Urine Bilirubin Urine Urobilinogen Ur Leukocyte Esterase Stool Occult Blood Positive Blood Type A POSITIVE Antibody Screen Negative 10/18/17 10/18/17 10/18/17 06:00 06:00 06:00 WBC 5.4 D RBC 3.52 L Hgb 10.4 L D Hct 31.5 L MCV 89.3 MCH 29.6 MCHC 33.1 RDW 14.8 Plt Count 125 L D MPV 8.6 Neutrophils % 76.1 Lymphocytes % 14.0 D Monocytes % 7.2 Eosinophils % 2.2 D Basophils % 0.5 PT with INR INR PTT (Actin FS) 36.8 H Sodium 141 Potassium 4.6 Chloride 105 Carbon Dioxide 30 Anion Gap 6 L BUN 38 H Creatinine 1.1 Creat Clearance w eGFR > 60 Random Glucose 100 Calcium 7.9 L Phosphorus 3.3 Magnesium 2.0 Total Bilirubin 0.9 D AST 16 ALT 20 Alkaline Phosphatase 72 Total Protein 6.3 L Albumin 3.3 L Urine Color Urine Appearance Urine pH Ur Specific [place] Urine Protein Urine Glucose (UA) Urine Ketones Urine Blood Urine Nitrite Urine Bilirubin Urine Urobilinogen Ur Leukocyte Esterase Stool Occult Blood Blood Type Antibody Screen Active Medications Generic Name Dose Route Start Last Admin Trade Name Dago PRN Reason Stop Dose Admin Famotidine/Sodium Chloride 20 mg in 50 mls @ 100 mls/hr 10/18/17 10:00 Pepcid 20 Mg Premixed Ivpb - IVPB BID SABINA Sodium Chloride 1,000 mls @ 50 mls/hr 10/18/17 07:00 10/18/17 08:00 Normal Saline - IV 10/19/17 06:49 50 mls/hr ASDIR SABINA Administration Metronidazole 500 mg 10/17/17 22:45 10/18/17 08:00 Flagyl - PO 500 mg TID SABINA Administration IMAGING: * CT Abdomen : 1. No bowel obstruction. Diverticulosis with no evidence of diverticulitis. Mild wall thickening in the proximal sigmoid colon and pericolonic fat stranding along the descending colon/proximal sigmoid colon are grossly similar to 10/04/2012 CT, likely chronic changes of diverticulosis. 2. Cholelithiasis. No CT evidence of acute cholecystitis. No CBD dilatation. 3. Incompletely imaged pericardial effusion, likely small in size. A chamber cardiomegaly. At least moderate coronary artery calcific atherosclerosis. 4. Mild fusiform aneurysmal enlargement of the infrarenal abdominal aorta measuring 3 cm in diameter and left common iliac artery measuring 2.4 cm in diameter. Reported By: Rina Iraheta DO 10/17/172102 Vero Taylor Technologist: Adarsh Harvey Transcribed Date/Time: 10/17/172102 Checkroom Attendant: Rina Iraheta DO Printed Date/Time: By: Signed by: Rina Iraheta Signed on: 17-Oct-2017 ASSESSMENT/ 87 yo M presents with BRBPR x3 * Given his presentation and h/o of hemorrhoids most likely hemorrhoidal bleed. * No significant drop in H/H * No clinical signs of C-diff given recent abx use. PLAN: * Will continue to observe for recurrent bleeding * Will hold off on colonoscopy for now unless continues to bleed. * Will repeat H/H in AM * Advance diet to clear liquids. Dispo: We will continue to follow the patient. Thank you for this consultative opportunity. <Jonathan Irvin - Last Filed: 10/18/17 14:48> Consultation: REQUESTING PROVIDER: CONSULT REQUEST: We have been asked to medically evaluate this patient for ( specify). HISTORY OF PRESENT ILLNESS: REVIEW OF SYSTEMS: CONSTITUTIONAL: Absent: fever, chills, diaphoresis, generalized weakness, malaise, loss of appetite, weight change HEENT: Absent: rhinorrhea, nasal congestion, throat pain, throat swelling, difficulty swallowing, mouth swelling, ear pain, eye pain, visual changes CARDIOVASCULAR: Absent: chest pain, syncope, palpitations, irregular heart rate, lightheadedness , peripheral edema RESPIRATORY: Absent: cough, shortness of breath, dyspnea with exertion, orthopnea, wheezing, stridor, hemoptysis GASTROINTESTINAL: Absent: abdominal pain, abdominal distension, nausea, vomiting, diarrhea, constipation, melena, hematochezia GENITOURINARY: Absent: dysuria, frequency, urgency, hesitancy, hematuria, flank pain, genital pain MUSCULOSKELETAL: Absent: myalgia, arthralgia, joint swelling, back pain, neck pain SKIN: Absent: rash, itching, pallor HEMATOLOGIC/IMMUNOLOGIC: Absent: easy bleeding, easy bruising, lymphadenopathy, frequent infections ENDOCRINE: Absent: unexplained weight gain, unexplained weight loss, heat intolerance, cold intolerance NEUROLOGIC: Absent: headache, focal weakness or paresthesias, dizziness, unsteady gait, seizure, mental status changes, bladder or bowel incontinence PSYCHIATRIC: Absent: anxiety, depression, suicidal or homicidal ideation, hallucinations. PHYSICAL EXAMINATION Vital Signs - 24 hr 10/17/17 10/17/17 10/18/17 18:29 19:34 06:30 Temperature 98.1 F Pulse Rate Pulse Rate [ Apical] Pulse Rate [ 64 86 Left Radial] Respiratory 20 19 Rate Blood Pressure Blood Pressure 108/59 116/84 [Left Arm] O2 Sat by Pulse 97 96 98 Oximetry (%) 10/18/17 10/18/17 10/18/17 07:02 08:30 10:33 Temperature 97.5 F L Pulse Rate 61 Pulse Rate [ 59 L Apical] Pulse Rate [ 64 Left Radial] Respiratory 14 16 18 Rate Blood Pressure 132/61 Blood Pressure 133/71 115/54 [Left Arm] O2 Sat by Pulse 98 100 95 Oximetry (%) 10/18/17 10/18/17 12:00 14:10 Temperature 97.7 F 98 F Pulse Rate 64 67 Pulse Rate [ Apical] Pulse Rate [ Left Radial] Respiratory 18 18 Rate Blood Pressure 144/72 124/65 Blood Pressure [Left Arm] O2 Sat by Pulse Oximetry (%) GENERAL: Awake, alert, and fully oriented, in no acute distress. HEAD: Normal with no signs of trauma. EYES: Pupils equal, round and reactive to light, extraocular movements intact, sclera anicteric, conjunctiva clear. No lid lag. EARS, NOSE, THROAT: Ears normal, nares patent, oropharynx clear without exudates. Moist mucous membranes. NECK: Normal range of motion, supple without lymphadenopathy, JVD, or masses. LUNGS: Breath sounds equal, clear to auscultation bilaterally. No wheezes, and no crackles. No accessory muscle use. HEART: Regular rate and rhythm, normal S1 and S2 without murmur, rub or gallop. ABDOMEN: Soft, nontender, not distended, normoactive bowel sounds, no guarding, no rebound, no masses. No hepatomegaly or splenomegaly. MUSCULOSKELETAL: Normal range of motion at all joints. No bony deformities or tenderness. No CVA tenderness. UPPER EXTREMITIES: 2+ pulses, warm, well-perfused. No cyanosis. No clubbing. Cap refill <2 seconds. No peripheral edema. LOWER EXTREMITIES: 2+ pulses, warm, well-perfused. No calf tenderness. No peripheral edema. NEUROLOGICAL: Cranial nerves II-XII intact. Normal speech. Normal gait. PSYCHIATRIC: Cooperative. Good eye contact. Appropriate mood and affect. SKIN: Warm, dry, normal turgor, no rashes or lesions noted. Laboratory Results - last 24 hr 10/17/17 10/18/17 10/18/17 15:41 06:00 06:00 WBC 5.4 D RBC 3.52 L Hgb 10.4 L D Hct 31.5 L MCV 89.3 MCH 29.6 MCHC 33.1 RDW 14.8 Plt Count 125 L D MPV 8.6 Neutrophils % 76.1 Lymphocytes % 14.0 D Monocytes % 7.2 Eosinophils % 2.2 D Basophils % 0.5 PTT (Actin FS) Sodium 140 141 Potassium 4.4 4.6 Chloride 104 105 Carbon Dioxide 29 30 Anion Gap 7 L 6 L BUN 40 H 38 H Creatinine 1.3 1.1 Creat Clearance w eGFR 52.47 > 60 Random Glucose 108 H 100 Calcium 8.2 L 7.9 L Phosphorus 3.3 Magnesium 2.0 Total Bilirubin 0.7 D 0.9 D AST 16 D 16 ALT 22 D 20 Alkaline Phosphatase 79 D 72 Total Protein 7.1 6.3 L Albumin 3.6 3.3 L 10/18/17 10/18/17 06:00 11:58 WBC 5.2 RBC 3.59 L Hgb 10.5 L Hct 32.1 L MCV 89.6 MCH 29.2 MCHC 32.6 RDW 15.0 Plt Count 133 L MPV 8.2 Neutrophils % 76.1 Lymphocytes % 14.8 Monocytes % 6.9 Eosinophils % 1.7 Basophils % 0.5 PTT (Actin FS) 36.8 H Sodium Potassium Chloride Carbon Dioxide Anion Gap BUN Creatinine Creat Clearance w eGFR Random Glucose Calcium Phosphorus Magnesium Total Bilirubin AST ALT Alkaline Phosphatase Total Protein Albumin Active Medications Generic Name Dose Route Start Last Admin Trade Name Freq PRN Reason Stop Dose Admin Famotidine/Sodium Chloride 20 mg in 50 mls @ 100 mls/hr 10/18/17 10:00 12:13 Pepcid 20 Mg Premixed Ivpb - IVPB 100 mls/hr BID SABINA Administration Sodium Chloride 1,000 mls @ 50 mls/hr 10/18/17 07:00 10/18/17 08:00 Normal Saline - IV 10/19/17 06:49 50 mls/hr ASDIR SABINA Administration Metronidazole 500 mg 10/17/17 22:45 10/18/17 08:00 Flagyl - PO 500 mg TID SABINA Administration ASSESSMENT/PLAN: Dispo: We will continue to follow the patient. Thank you for this consultative opportunity. Please see Dr Yeung consultation note. I have discussed the case with Dr Irvin <Radha Yeung - Last Filed: 10/18/17 18:24> Problem List - Problems (1) Rectal bleed (2) Family history- stomach cancer (3) S/P placement of cardiac pacemaker (4) HTN (hypertension) (5) Aneurysm, aortic <Jonathan Irvin - Last Filed: 10/18/17 14:48> - Problems (1) Rectal bleed Code(s): K62.5 - HEMORRHAGE OF ANUS AND RECTUM (2) Diverticula of colon Code(s): K57.30 - DVRTCLOS OF LG INT W/O PERFORATION OR ABSCESS W/O BLEEDING (3) Colon polyp Code(s): K63.5 - POLYP OF COLON (4) Family history- stomach cancer Code(s): Z80.0 - FAMILY HISTORY OF MALIGNANT NEOPLASM OF DIGESTIVE ORGANS (5) Gallstone Code(s): K80.20 - CALCULUS OF GALLBLADDER W/O CHOLECYSTITIS W/O OBSTRUCTION (6) Nephrolithiasis Code(s): N20.0 - CALCULUS OF KIDNEY (7) Aneurysm, aortic Code(s): I71.9 - AORTIC ANEURYSM OF UNSPECIFIED SITE, WITHOUT RUPTURE Qualifiers: Aortic location: thoracic aorta Presence of rupture: without rupture Qualified Code(s): I71.2 - Thoracic aortic aneurysm, without rupture <Radha Yeung - Last Filed: 10/18/17 18:24> Visit type - Emergency Visit Emergency Visit: Yes ED Registration Date: 10/17/17 Care time: The patient presented to the Emergency Department on the above date and was hospitalized for further evaluation of their emergent condition. - New Patient This patient is new to me today: Yes Date on this admission: 10/18/17 - Critical Care Critical Care patient: No <Jonathan Irvin - Last Filed: 10/18/17 14:48>
--- NOTE | 2017-10-18 11:56 | CON.GI ---
Consult Consult Specialty:: Gastroenterology Referred by:: Dr Stafford Reason for Consultation:: Rectal bleeding - History of Present Illness Chief Complaint: Hematochezia x 4 episodes yesterday History of Present Illness: 87M developed hematochezia after straining to defecate yesterday morning. He had 4 episodes but none today. He had mild suprapubic cramping pain that resolved with defecation. [facility] cellulitis. He has no previous h/o bleeding but did require a hemorrhoidectomy years ago. He was found to have prominent hemorrhoids by Dr Quintero during his last colonoscopy in 12/25. He also had diverticulosis and had polyps removed. His father had stomach cancer. - History Source History Provided By: Patient Limitations to Obtaining History: No Limitations - Past Medical History Cardio/Vascular: Yes: Aneurysm (3cm infrarenal AAA), HTN, Hyperlipdemia Gastrointestinal: Yes: Diverticulosis, GERD, Hemorrhoids, Other (colon polyps) Hepatobiliary: Yes: Cholelithiasis Renal/: Yes: Renal Calculi Infectious Disease: Yes: Other (RLE cellulitis) Musculoskeletal: Yes: Other (lumbar stenosis) - Past Surgical History Past Surgical History: Yes: Appendectomy, Colonoscopy, Permanent Pacemaker, Upper Endoscopy, Vein Stripping/Ligation (LLE) Additional Surgical History: Hemorrhoidectomy - Alcohol/Substance Use Hx Alcohol Use: Yes (Occasional holidays) - Smoking History Smoking history: Former smoker Have you smoked in the past 12 months: No Aproximately how many cigarettes per day: 0 If you are a former smoker, when did you quit?: over 35 years ago - Social History Usual Living Arrangement: With Spouse ADL: Independent 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 History of Recent Travel: No Home Medications - Allergies Allergies/Adverse Reactions: Allergies Allergy/AdvReac Type Severity Reaction Status Date / Time No Known Allergies Allergy Verified 10/17/17 15:23 - Home Medications Home Medications: Ambulatory Orders Amlodipine Besylate [Norvasc -] 5 mg PO DAILY 09/24/12 Furosemide [Lasix -] 40 mg PO DAILY 09/24/12 Simvastatin [Zocor -] 20 mg PO HS 09/24/12 Terazosin HCl 10 mg PO HS 09/24/12 Omeprazole [Prilosec (RX)] 20 mg PO BID #0 ramon. 09/25/12 Allopurinol [Zyloprim -] 300 mg PO DAILY 12/27/12 Aspirin [ASA -] 81 mg PO DAILY #0 tab.chew 01/01/16 Polyethylene Glycol 3350 [Miralax (For Daily Use) -] 17 gm PO DAILY #1 bottle Wheat Dextrin [Benefiber] 1 each PO BID #0 powd.pack 01/01/16 Losartan Potassium 100 mg PO DAILY 10/17/17 Family Disease History - Family Disease History Family Disease History: Heart Disease: Mother ( 80 [place]), [place]: Father ( 81 , gastric cancer) Review of Systems - Review of Systems Constitutional: reports: No Symptoms Eyes: reports: No Symptoms HENT: reports: No Symptoms Neck: reports: No Symptoms Cardiovascular: reports: No Symptoms Respiratory: reports: No Symptoms Gastrointestinal: reports: Constipation, Rectal Bleeding Genitourinary: reports: No Symptoms Musculoskeletal: reports: Extremity Pain (RLE cellulitis [facility]) Neurological: reports: No Symptoms Psychiatric: reports: No Symptoms Physical Exam-GI Vital Signs: Vital Signs Temperature 97.5 F L 10/18/17 07:02 Pulse Rate 61 10/18/17 10:33 Respiratory Rate 18 10/18/17 10:33 Blood Pressure 132/61 10/18/17 10:33 O2 Sat by Pulse Oximetry (%) 95 10/18/17 10:33 CBC,CMP WBC 5.4 K/mm3 (4.0-10.0) D 10/18/17 06:00 RBC 3.52 M/mm3 (4.00-5.60) L 10/18/17 06:00 Hgb 10.4 GM/dL (11.7-16.9) L D 10/18/17 06:00 Hct 31.5 % (35.4-49) L 10/18/17 06:00 MCV 89.3 fl (80-96) 10/18/17 06:00 MCH 29.6 pg (25.7-33.7) 10/18/17 06:00 MCHC 33.1 g/dl (32.0-35.9) 10/18/17 06:00 RDW 14.8 % (11.9-15.9) 10/18/17 06:00 Plt Count 125 K/MM3 (134-434) L D 10/18/17 06:00 MPV 8.6 fl (7.5-11.1) 10/18/17 06:00 Neutrophils % 76.1 % (42.8-82.8) 10/18/17 06:00 Lymphocytes % 14.0 % (8-40) D 10/18/17 06:00 Monocytes % 7.2 % (3.8-10.2) 10/18/17 06:00 Eosinophils % 2.2 % (0-4.5) D 10/18/17 06:00 Basophils % 0.5 % (0-2.0) 10/18/17 06:00 Sodium 141 mmol/L (136-145) 10/18/17 06:00 Potassium 4.6 mmol/L (3.5-5.1) 10/18/17 06:00 Chloride 105 mmol/L (98-107) 10/18/17 06:00 Carbon Dioxide 30 mmol/L (21-32) 10/18/17 06:00 Anion Gap 6 (8-16) L 10/18/17 06:00 BUN 38 mg/dL (7-18) H 10/18/17 06:00 Creatinine 1.1 mg/dL (0.7-1.3) 10/18/17 06:00 Creat Clearance w eGFR > 60 (>60) 10/18/17 06:00 Random Glucose 100 mg/dL (74-106) 10/18/17 06:00 Calcium 7.9 mg/dL (8.5-10.1) L 10/18/17 06:00 Phosphorus 3.3 mg/dL (2.5-4.9) 10/18/17 06:00 Magnesium 2.0 mg/dL (1.8-2.4) 10/18/17 06:00 Total Bilirubin 0.9 mg/dL (0.2-1.0) D 10/18/17 06:00 AST 16 U/L (15-37) 10/18/17 06:00 ALT 20 U/L (12-78) 10/18/17 06:00 Alkaline Phosphatase 72 U/L (45-117) 10/18/17 06:00 Total Protein 6.3 g/dl (6.4-8.2) L 10/18/17 06:00 Albumin 3.3 g/dl (3.4-5.0) L 10/18/17 06:00 Current Medications Generic Name Dose Route Start Last Admin Trade Name Dago PRN Reason Stop Dose Admin Famotidine/Sodium Chloride 20 mg in 50 mls @ 100 mls/hr 10/18/17 10:00 Pepcid 20 Mg Premixed Ivpb - IVPB BID SABINA Sodium Chloride 1,000 mls @ 50 mls/hr 10/18/17 07:00 10/18/17 08:00 Normal Saline - IV 10/19/17 06:49 50 mls/hr ASDIR SABINA Administration Metronidazole 500 mg 10/17/17 22:45 10/18/17 08:00 Flagyl - PO 500 mg TID SABINA Administration Constitutional: Yes: No Distress Eyes: Yes: Conjunctiva Clear HENT: Yes: Atraumatic Neck: Yes: Supple Cardiovascular: Yes: Regular Rate and Rhythm (left PPM), S1 (wnl), S2 (wnl) Respiratory: Yes: CTA Bilaterally Gastrointestinal Inspection: Yes: Scars (healed laparoscopic incisions) ...Auscultate: Yes: Normoactive Bowel Sounds ...Palpate: Yes: Soft, Other (nontender) ...Rectal Exam: Yes: Deferred (done by my resident Dr Irvin and found no blood) Musculoskeletal: Yes: WNL Extremities: Yes: Erythema (RLE) Edema: RLE: 2+ Wound/Incision: Yes: Reddened (RLE) Neurological: Yes: Alert Psychiatric: Yes: Alert Labs: CBC, BMP 10/18/17 06:00 10/18/17 06:00 INR, PTT INR 1.12 (0.82-1.09) 10/17/17 15:41 Laboratory Tests 09/24/12 11/17/14 10/17/17 10:00 21:30 15:41 Hgb 12.9 12.7 11.8 10/18/17 11:58 Hgb 10.5 L Imaging - Results Cat Scan: Report Reviewed (Hilary Avalos Name: VALORIE CADE JR DEPARTMENT OF RADIOLOGY Phys: Vero Taylor NP : 1930 Age: 87 Sex: M [facility] Acct: [id number] Loc: [facility] Exam Date: 10/17/17 Status: MU [place] Unit Number: [id number] EXAM#: TYPE/EXAM : RESULT: [id number] CT/ABDOMEN PELVIS CT W/O CONTR ADDENDUM ADDENDUM #1 There is a typographical error in the impression. #3 should read multichamber cardiomegaly Final impression is as follows: Impression: 1. No bowel obstruction. Diverticulosis with no evidence of diverticulitis. Mild wall thickening in the proximal sigmoid colon and pericolonic fat stranding along the descending colon/proximal sigmoid colon are grossly similar to 10/04/2012 CT, likely chronic changes of diverticulosis. 2. Cholelithiasis. No CT evidence of acute cholecystitis. No CBD dilatation. 3. Incompletely imaged pericardial effusion, likely small in size. Multichamber cardiomegaly. At least moderate coronary artery calcific atherosclerosis. 4. Mild fusiform aneurysmal enlargement of the infrarenal abdominal aorta measuring 3 cm in diameter and left common iliac artery measuring 2.4 cm in diameter. ORIGINAL REPORT Exam: CT abdomen and pelvis without IV contrast. Indication: Rectal bleeding. Technique: CT of the abdomen and pelvis with oral contrast and without intravenous contrast. Comparison: 09/24/2012 CT abdomen/pelvis. Findings : There is an incompletely imaged pericardial effusion, likely small in size. There is multichamber cardiomegaly, at least moderate coronary artery calcific atherosclerosis and bipolar pacemaker leads. There is linear scarring versus atelectasis in both lung bases. The liver is normal in size and contour there is cholelithiasis with no CT evidence of acute cholecystitis. The common bile duct is not dilated. The unenhanced pancreas is unremarkable. Normal size spleen. There is no mass or nodule in the adrenal glands. There is no hydroureteronephrosis. There is mild age-related atrophy of the kidneys. There is an approximately 5.5 x 5.5 cm exophytic cortical cyst in the upper pole of the right kidney and approximately 2.5 x 2.5 cm cortical cyst in the midpole of the left kidney. There are no renal or ureteral calculi. Mild fusiform aneurysmal enlargement of the abdominal aorta measuring 3 cm in mid sagittal plane diameter, similar to the prior CT. There is fusiform aneurysmal enlargement of the left common iliac artery measuring 2.4 cm diameter ( previously measured 2.2 cm at a similar level). There is moderate calcific atherosclerosis along the abdominal aorta and branch vessels. No pathologically enlarged lymph nodes by CT size criteria identified within the abdomen or pelvis. There is no bowel obstruction. Status post appendectomy. There is diverticulosis of the descending and sigmoid colon diverticula scattered along the remainder of the colon, with no evidence of diverticulitis. There is mild circumferential thickening of the sigmoid colon which is similar to the prior CT and may be attributed to muscular hyperplasia of diverticulosis. Pericolonic fat stranding along the descending colon and proximal sigmoid colon is grossly similar to 09/24/2012, possibly chronic sequela of prior diverticulitis or colitis. There is no free intraperitoneal air or ascites. The prostate gland is enlarged, measuring approximate 5.3 x 5.3 cm, indenting the base the urinary bladder. Please correlate with PSA and physical exam. The urinary bladder is otherwise unremarkable. There is a large left inguinal hernia containing fat only. There is osseous demineralization with no evidence of acute fracture. There is thoracolumbar spondylosis and degenerative changes in the sacroiliac joints and hips. There is severe canal and neural foraminal stenosis at L4-L5 and L5-S1. 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 Impression: 1. No bowel obstruction. Diverticulosis with no evidence of diverticulitis. Mild wall thickening in the proximal sigmoid colon and pericolonic fat stranding along the descending colon/ proximal sigmoid colon are grossly similar to 10/04/2012 CT, likely chronic changes of diverticulosis. 2. Cholelithiasis. No CT evidence of acute cholecystitis. No CBD dilatation. 3. Incompletely imaged pericardial effusion , likely small in size. A chamber cardiomegaly. At least moderate coronary artery calcific atherosclerosis. 4. Mild fusiform aneurysmal enlargement of the infrarenal abdominal aorta measuring 3 cm in diameter and left common iliac artery measuring 2.4 cm in diameter. Reported By: Rina Iraheta DO 10/17/17 [id number] Exam: CT abdomen and pelvis without IV contrast. Indication: Rectal bleeding. Technique: CT of the abdomen and pelvis with oral contrast and without intravenous contrast. Comparison: 09/24/2012 CT abdomen/pelvis. Findings: There is an incompletely imaged pericardial effusion, likely small in size. There is multichamber cardiomegaly, at least moderate coronary artery calcific atherosclerosis and bipolar pacemaker leads. There is linear scarring versus atelectasis in both lung bases. The liver is normal in size and contour there is cholelithiasis with no CT evidence of acute cholecystitis. The common bile duct is not dilated. The unenhanced pancreas is unremarkable. Normal size spleen. There is no mass or nodule in the adrenal glands. There is no hydroureteronephrosis. There is mild age- related atrophy of the kidneys. There is an approximately 5.5 x 5.5 cm exophytic cortical cyst in the upper pole of the right kidney and approximately 2.5 x 2.5 cm cortical cyst in the midpole of the left kidney. There are no renal or ureteral calculi. Mild fusiform aneurysmal enlargement of the abdominal aorta measuring 3 cm in mid sagittal plane diameter, similar to the prior CT. There is fusiform aneurysmal enlargement of the left common iliac artery measuring 2.4 cm diameter (previously measured 2.2 cm at a similar level). There is moderate calcific atherosclerosis along the abdominal aorta and branch vessels. No pathologically enlarged lymph nodes by CT size criteria identified within the abdomen or pelvis. There is no bowel obstruction. Status post appendectomy. There is diverticulosis of the descending and sigmoid colon diverticula scattered along the remainder of the colon, with no evidence of diverticulitis. There is mild circumferential thickening of the sigmoid colon which is similar to the prior CT and may be attributed to muscular hyperplasia of diverticulosis. Pericolonic fat stranding along the descending colon and proximal sigmoid colon is grossly similar to 09/24/2012, possibly chronic sequela of prior diverticulitis or colitis. There is no free intraperitoneal air or ascites. The prostate gland is enlarged, measuring approximate 5.3 x 5.3 cm, indenting the base the urinary bladder. Please correlate with PSA and physical exam. The urinary bladder is otherwise unremarkable. There is a large left inguinal hernia containing fat only. There is osseous demineralization with no evidence of acute fracture. There is thoracolumbar spondylosis and degenerative changes in the sacroiliac joints and hips. There is severe canal and neural foraminal stenosis at L4-L5 and L5-S1. 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 Impression: 1. No bowel obstruction. Diverticulosis with no evidence of diverticulitis. Mild wall thickening in the proximal sigmoid colon and pericolonic fat stranding along the descending colon/ proximal sigmoid colon are grossly similar to 10/04/2012 CT, likely chronic changes of diverticulosis. 2. Cholelithiasis. No CT evidence of acute cholecystitis. No CBD dilatation. 3. Incompletely imaged pericardial effusion , likely small in size. A chamber cardiomegaly. At least moderate coronary artery calcific atherosclerosis. 4. Mild fusiform aneurysmal enlargement of the infrarenal abdominal aorta measuring 3 cm in diameter and left common iliac artery measuring 2.4 cm in diameter. Reported By: Rina Iraheta DO 10/17/172102 Vero Taylor Technologist: Adarsh Harvey Transcribed Date/Time: 10/17/172102 Population Health Coach: Rina Iraheta DO Printed Date/Time: By: Signed by: Rina Iraheta Signed on: 21:06) Problem List - Problems (1) Rectal bleed Assessment/Plan: This pattern of bleeding is most consistent with hemorrhoidal bleeding but need to observe for bleeding from diverticuli, ischemic colitis and vascular ectasias. Will start with clear liquids. Will reserve colonoscopy for persistent bleeding. He does not have diarrhea to suggest C diff colitis. He would prefer not to have anymore endoscopies. I did ask him to have Dr. Quintero 's notes transferred. Code(s): K62.5 - HEMORRHAGE OF ANUS AND RECTUM (2) Diverticula of colon Code(s): K57.30 - DVRTCLOS OF LG INT W/O PERFORATION OR ABSCESS W/O BLEEDING (3) Colon polyp Code(s): K63.5 - POLYP OF COLON (4) Family history- stomach cancer Code(s): Z80.0 - FAMILY HISTORY OF MALIGNANT NEOPLASM OF DIGESTIVE ORGANS (5) Gallstone Code(s): K80.20 - CALCULUS OF GALLBLADDER W/O CHOLECYSTITIS W/O OBSTRUCTION (6) Nephrolithiasis Code(s): N20.0 - CALCULUS OF KIDNEY (7) Aneurysm, aortic Code(s): I71.9 - AORTIC ANEURYSM OF UNSPECIFIED SITE, WITHOUT RUPTURE
[2017-10-18 12:07] LABS: BASO % 0.5 % (0-2.0); EOS % 1.7 % (0-4.5); HEMATOCRIT 32.1 % (35.4-49); HEMOGLOBIN 10.5 GM/dL (11.7-16.9); LYMPH % 14.8 % (8-40); MCH 29.2 pg (25.7-33.7); MCHC 32.6 g/dl (32.0-35.9); MEAN CELL VOLUME 89.6 fl (80-96); MEAN PLT VOLUME 8.2 fl (7.5-11.1); MONO % 6.9 % (3.8-10.2); NEUT % 76.1 % (42.8-82.8); PLATELET COUNT 133 K/MM3 (134-434); RBC 3.59 M/mm3 (4.00-5.60); WHITE BLOOD COUNT 5.2 K/mm3 (4.0-10.0)
[2017-10-18] MEDS: FAMOTIDINE 20 MG/50 ML IVPB 20 MG/50 ML MG IVPB SCH ×2 (12:13→21:35)
--- NOTE | 2017-10-18 12:41 | PN ---
Progress Note (short form) - Note Progress Note: ID Consult dictated 87 y/o male admitted with abdominal cramping and hematochezia. Was taking cephalexin for non-healing R LE ulcer ? C difficile colitis ? infectious colitis Await stool studies Continue empiric po flagyl
--- NOTE | 2017-10-18 14:13 | CONS ---
DATE OF CONSULTATION: DATE OF DICTATION: 10/18/2017 HISTORY OF PRESENT ILLNESS: The patient is an 87-year-old male who was evaluated for possible colitis. He was admitted to the hospital on October 17, 2017, with rectal bleeding. He had apparently been constipating at home and had been straining at stool. He developed crampy suprapubic abdominal pain and sravan red blood per rectum. He presented to the emergency room where a CT scan was performed and showed chronic changes of the left colon, which was similar to findings present on a CT scan in 2012. There was evidence of diverticulosis, but no evidence of diverticulitis. Wall thickening in the proximal sigmoid colon similar to changes present in the CT scan in September of 2012. At the present time, he is comfortable. He has no complaints of pain. He has had recurrent hematochezia. He denies any nausea or vomiting. No fever or chills. Of note, the patient was recently treated with a course of cephalexin for a non-healing right lower extremity wound secondary to trauma. He lives at home with his , who is well. No recent travel. No recent hospitalizations. PAST MEDICAL HISTORY: Positive for hyperlipidemia, hypertension, gouty arthritis, cholelithiasis, diverticulosis, peptic ulcer disease. PAST SURGICAL HISTORY: Status post permanent pacemaker, appendectomy, hemorrhoid surgery. ALLERGIES: No known allergies. MEDICATIONS: Norvasc, Lasix, Zocor, terazosin, Prilosec, Zyloprim, aspirin. SOCIAL HISTORY: History of tobacco use. SYSTEMS REVIEW: Neurologic: No loss of consciousness, seizure activity, or focal weakness. Cardiac: Negative for chest pain or palpitations. Respiratory: Negative for cough or sputum production. Gastrointestinal: As per HPI. Genitourinary: Negative for urinary tract infection. LABORATORY DATA: White count 5.2, hematocrit 32.1, platelet count 133. BUN 38, creatinine 1.1. Urine leukocyte esterase negative. Stool C. difficile and stool culture pending. PHYSICAL EXAMINATION: General: He is awake and alert. He is not acutely toxic-appearing. Vital signs: Temperature 97.5, blood pressure 132/61, pulse 61 and regular, respirations 18 per minute. HEENT: Sclerae anicteric. Heart: Heart sounds S1, S2. Lungs: Clear. Abdomen: Obese. There is no tenderness elicited. No mass, rebound, or rigidity. Extremities: Positive for edema. Surgical dressing is in place on the right lower extremity with instructions not to be removed per wound care. IMPRESSION: An 87-year-old male admitted with abdominal cramping, constipation, and hematochezia, who is taking cephalexin for a non-healing right lower extremity ulcer. 1. Possible Clostridium difficile colitis. 2. Rule out infectious colitis. Await stool C. difficile, stool culture, and ova and parasites. Continue empiric antibiotic coverage with Flagyl 500 mg p.o. every 8 hours. Will hold empiric systemic antibiotics. Wound care followup. GI followup. Thank you for the kind referral. LATISHA WRIGHT M.D. [id number]
[2017-10-18] MEDS ORDERED: PT OWN MED DRAWER 7, Y5N ONE (14:39)
[2017-10-18 19:22] LABS: BASO % 0.4 % (0-2.0); EOS % 2.1 % (0-4.5); HEMATOCRIT 33.5 % (35.4-49); HEMOGLOBIN 11.1 GM/dL (11.7-16.9); LYMPH % 20.3 % (8-40); MCH 29.6 pg (25.7-33.7); MCHC 33.2 g/dl (32.0-35.9); MEAN CELL VOLUME 89.1 fl (80-96); MEAN PLT VOLUME 9.2 fl (7.5-11.1); MONO % 7.5 % (3.8-10.2); NEUT % 69.7 % (42.8-82.8); PLATELET COUNT 168 K/MM3 (134-434); RBC 3.76 M/mm3 (4.00-5.60); RDW 14.9 % (11.9-15.9); WHITE BLOOD COUNT 5.5 K/mm3 (4.0-10.0)
--- NOTE | 2017-10-18 20:40 | CONS ---
DATE OF CONSULTATION: DATE OF DICTATION: 10/18/2017 CARDIOLOGY CONSULTATION REQUESTING PHYSICIAN: Rm Stafford M.D. 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 Patient states that he went to the bathroom and had to force himself to have a bowel movement. Patient later decided to drive to see a friend, and while he was driving he started experiencing lower abdominal crampy discomfort and once he reached his destination, he went to the bathroom, had watery bowel movement and found that he had passed large amount of fresh blood. It was painless, and he finally got home, and had 2 further episodes of hematochezia, decided to come to the emergency room. While in the hospital, he had another episode. There is no history of palpitations, lightheadedness, dizziness, presyncope, or syncope. No history of chest pain or discomfort either at rest or with exertion. There is no history of further abdominal pain or discomfort. Patient states that he had been on antibiotics for his injury related to the right lower extremity. Patient was recently seen in the office at the request of the family. He had lower extremity pedal edema and left lower extremity revealed bleb formation and chronic stasis changes, and edema extended to the left foot. There is no history of paroxysmal nocturnal dyspnea, or orthopnea. PAST HISTORY: As mentioned in the history of present illness. 1. History of varicose veins. 2. History of renal lithiasis several years ago. 3. Status post left retinal bleed. 4. Blurred vision involving the left eye. SURGICAL HISTORY: 1. Status post appendectomy. 2. Status post hemorrhoidectomy. 3. Status post vein stripping involving the left lower extremity. SOCIAL HISTORY: He is a retired restaurant flatbed owner operator, is , has a son and a daughter who are healthy. Smoked from the age of 19 and stopped in his 30s. Smoked approximately 1/2 packet of cigarettes a day. He has a social drink. Drinks 2 cups of coffee per day. FAMILY HISTORY: Father in his late 80s due to carcinoma of the stomach. Mother was hypertensive, diabetic, and had legal blindness. She also had history of migraine and hypercholesterolemia. Has 2 sisters, both of them are hypertensive, one of them had a cerebrovascular accident, and both of them have hypercholesterolemia. ALLERGIES: reported. MEDICATION: Prior to admission, he was on the following medicine. 1. Metoprolol succinate 25 mg p.o. daily. 2. Losartan 100 mg p.o. daily. 3. Allopurinol 300 mg p.o. daily. 4. Simvastatin 20 mg p.o. daily at bedtime. 5. Furosemide that was recently increased from 20 mg daily to 20 mg alternating with 40 mg. 6. Aspirin 81 mg p.o. daily. 7. Terazosin 10 mg p.o. daily. 8. Omeprazole 20 mg on a p.r.n. basis. 9. Colchicine 0.6 mg on a p.r.n. basis for acute gouty attack. 10. Vitamin B12, 1000 mcg intramuscularly once a month. REVIEW OF SYSTEMS: Constitutional: No history of chills, fever, or night sweats. No history of unintentional weight loss. HEENT: No history of headaches, diplopia. History of partial blindness involving the left eye. No history of epistaxis, hoarseness. History of deafness involving the left ear. No history of tinnitus. Respiratory: No history of cough, expectoration or hemoptysis. No history of tuberculosis. Cardiovascular: See history of present illness. Gastrointestinal: See history of present illness. No history of recent nausea, vomiting. Genitourinary: No history of frequency, urgency, dysuria, or hematuria. History of 1-2 times nocturia. Musculoskeletal: No history of myalgias or arthralgias. Endocrine: No history of polyuria, polydipsia. No history of intolerance to cold or warm weather. Central nervous system: No history of seizures, syncope, focal weakness. PHYSICAL EXAMINATION: General: An 87-year-old obese gentleman was in no distress, no pallor, cyanosis, clubbing, or jaundice. Vital signs: Weight was not recorded. Blood pressure 124/65 mmHg. Pulse 67 beats per minute and regular. Temperature 98 degrees Fahrenheit. Respirations were 18 per minute. Oxygen saturation on room air was 95%. Neck: Supple. No jugulovenous distention. Carotids were 2+, no bruits were heard, and no thyromegaly was present. Heart: PMI was in the 5th intercostal space, no heaves or thrills. S1 and S2 were normal. A grade 2/6 ejection systolic murmur was heard at the 2nd right intercostal space and along the left sternal border ending in early systole. A grade 1/6 decrescendo systolic murmur was heard at the apex. No diastolic murmur or gallops were heard. Lungs: Clear on auscultation. Chest: Normal AP diameter, expansion was symmetrical. Abdomen: Soft, obese and nontender. No hepatosplenomegaly was appreciated. No palpable masses were felt. Bowel sounds were heard, no bruits were appreciated. Extremities: Right lower extremity and foot was bandaged below the upper calf. The left lower extremity had varicosities, chronic stasis changes, and 1+ pitting edema. Femoral pulses were 2+. Left dorsalis pedis pulse was 2+. Posterior tibial pulse was weak. Right dorsalis pedis and posterior tibial pulse could not be palpated because of surgical dressing. ECG October 17, 2017: AV sequential pacemaker was functioning appropriately. X-ray chest, impression: No significant interval change or acute lung disease is present. There was mild elevation of left hemidiaphragm, mild perihilar increased lung markings. Scan of the abdomen, impression: 1. No bowel obstruction, diverticulosis, with no evidence of diverticulitis. Mild wall thickening in the proximal sigmoid colon and pericolonic fat stranding along the descending colon/proximal sigmoid colon are grossly similar to October 04, 2012, likely chronic changes of diverticulosis. 2. Cholelithiasis. No common bile duct dilatation. No evidence of acute cholecystitis. 3. Incompletely imaged pericardial effusion likely small in size. A chamber cardiomegaly at least moderate coronary artery calcific atherosclerosis. 4. Mild fusiform aneurysmal enlargement of the infrarenal abdominal aorta measuring 3 cm and the left common iliac artery measuring 2.4 cm in diameter. CBC on admission on October 17, 2017: WBC count 8600, hemoglobin 11.8 g, platelet count 157,000, shift to the left. Repeat CBC on October 18, 2017, at 11:58: WBC count 5200, hemoglobin was 10.5 g, hematocrit 32.1%, platelet count was 133,000. Chemistry October 18, 2017: Sodium 141, potassium 4.6 ,chloride 105, CO2 of 30 mmol/L, BUN 38, creatinine 1.1 mg/dL, random glucose 100 mg/dL, calcium 7.9, total protein 6.3, and albumin was low at 3.3 g/dL. Magnesium was 2.0 mg/dL. Echocardiogram, interpretation summary: 1. Clinical correlation is recommended. 2. Septal motion is consistent with conduction abnormality. 3. Regional wall motion abnormalities cannot be excluded due to limited visualization. 4. Moderate pericardial effusion. 5. The echo Doppler findings are inconclusive for cardiac tamponade. 6. Clinical correlation is recommended. 7. Left ventricular size, thickness, and function are normal. 8. Left ventricular ejection fraction is normal. 9. Right ventricle is not well visualized. 10. There is trace mitral regurgitation. 11. Tricuspid valve is not well visualized. 12. There is mild tricuspid regurgitation. 13. Right ventricular systolic pressure is normal. IMPRESSION: 1. Acute lower gastrointestinal bleeding, etiology to be determined. a. Hemorrhoidal bleeding. b. Diverticular bleed. 2. Mild to moderate pericardial effusion, etiology to be determined. 3. Hypertension, hypertensive cardiovascular disease. 4. 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 5. Hyperuricemia. 6. Recent injuries related to a fall with significant injury to the right blanchard [facility]. 7. Varicose veins with venous insufficiency. 8. Gastroesophageal reflux disease. 9. History of vitamin D deficiency. 10. Anemia as partly related to acute gastrointestinal bleed. Etiology of thrombocytopenia needs to be determined. 11. 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 12. Exogenous obesity. 13. Hyperlipidemia. 14. Gastroesophageal reflux disease. PLAN: 1. Outpatient medication should be resumed. 2. Currently patient is on Flagyl 500 mg t.i.d. along with famotidine 20 mg IV piggyback b.i.d. 3. He is aware of his dietary restrictions and need for weight reduction. 4. Follow up CBC. 5. Pacemaker interrogation that could be done on an outpatient basis. 6. T3, T4, TSH. Thank you for your referral. Yours sincerely, MARY COTA M.D. [id number]
[2017-10-19] MEDS: metroNIDAZOLE 250 MG TABLET PO SCH ×2 (06:07→14:26)
[2017-10-19] MEDS: SODIUM CHLORIDE 1,000 ML IV SCH (06:07)
[2017-10-19 08:23] LABS: BASO % 0.7 % (0-2.0); EOS % 2.9 % (0-4.5); HEMOGLOBIN 10.5 GM/dL (11.7-16.9); LYMPH % 15.6 % (8-40); MCH 29.4 pg (25.7-33.7); MCHC 32.7 g/dl (32.0-35.9); MEAN CELL VOLUME 89.8 fl (80-96); MEAN PLT VOLUME 8.9 fl (7.5-11.1); MONO % 6.8 % (3.8-10.2); PLATELET COUNT 134 K/MM3 (134-434); RBC 3.57 M/mm3 (4.00-5.60); RDW 15.1 % (11.9-15.9); WHITE BLOOD COUNT 4.9 K/mm3 (4.0-10.0)
--- NOTE | 2017-10-19 08:41 | DS ---
Physical Examination Vital Signs: Vital Signs Temperature 97.8 F 10/19/17 06:00 Pulse Rate 64 10/19/17 06:00 Respiratory Rate 20 10/19/17 06:00 Blood Pressure 130/70 10/19/17 06:00 O2 Sat by Pulse Oximetry (%) 96 10/18/17 20:00 Findings/Remarks: NO FURTHER BLEEDING NO CP OR SOB Cardiovascular: Yes: Regular Rate and Rhythm Respiratory: Yes: Regular, CTA Bilaterally Gastrointestinal: Yes: Normal Bowel Sounds, Soft Labs: CBC, BMP 10/19/17 07:07 Discharge Summary Reason For Visit: RECTAL HEMORRHAGE Current Active Problems Afib (Acute) Aneurysm, aortic (Acute) Colon polyp (Acute) Diverticula of colon (Acute) Family history- stomach cancer (Acute) Gallstone (Acute) Nephrolithiasis (Acute) Rectal bleed (Acute) S/P placement of cardiac pacemaker (Acute) Hospital Course: 87-year-old male with PMH of diverticulosis and constipation came to hospital with a complaint of rectal bleed. Patient reports that he has 3 episodes since morning with some abdominal cramps, large in quantity, mixed with watery stool , Denies pain on defecation, denies pain abdomen, Denies nausea, vomiting, no pain on defecation. Denies fever and chills, denies loss of weight. Denies loss of apatite, Denies feeling of incomplete defecation, Denies morning diarrhoea. Denies easy bruising and bleeding, Denies any similar previous episodes. Patient also reports that he is on antibiotics from last 3 week for wound on his leg. Also reports colonoscopy was done in 2016 and it showed diverticulosis and polys ER course was notable for: (1)cbc, cmp, inr (2)CT abdomen Recent Travel: no PAST MEDICAL HISTORY: htn, hld, gerd, gout PAST SURGICAL HISTORY: LL varicose vein, haemorrhoidectomy, appendectomy, pace maker in 2015 Social History: Smoking: smoked for 30 years 1/2 pack a day. stopped 30 years ago Problems (1) Pericardial Effusion Assessment/Plan: MODERATE CARDIO F/U--D/W DR COTA--F/U OUTPATIENT Code(s): I48.91 - UNSPECIFIED ATRIAL FIBRILLATION (2) S/P placement of cardiac pacemaker Assessment/Plan: MONITOR Code(s): Z95.0 - PRESENCE OF CARDIAC PACEMAKER (3) Rectal bleed Assessment/Plan: R/O C.DIF FOLLOW CBC GI CONSULT HOLD OFF ON ASA Code(s): K62.5 - HEMORRHAGE OF ANUS AND RECTUM (4) HTN (hypertension) Code(s): I10 - ESSENTIAL (PRIMARY) HYPERTENSION Condition: Stable - Instructions - Home Medications Comprehensive Discharge Medication List: Ambulatory Orders Simvastatin [Zocor -] 20 mg PO HS 09/24/12 Omeprazole [Prilosec (RX)] 20 mg PO BID #0 capsule. 09/25/12 Allopurinol [Zyloprim -] 300 mg PO DAILY 12/27/12 Polyethylene Glycol 3350 [Miralax 119 gm Btl -] 17 gm PO DAILY #1 bottle Tamsulosin HCl [Flomax] 0.4 mg PO DAILY #30 capsule 10/19/17 metroNIDAZOLE [Flagyl -] 500 mg PO TID #18 tablet 10/19/17
[2017-10-19 08:42] LABS: ANION GAP 6 (8-16); BLOOD UREA NITROGEN 25 mg/dL (7-18); CALCIUM 8.7 mg/dL (8.5-10.1); CHLORIDE 107 mmol/L (98-107); CO2 30 mmol/L (21-32); GLUCOSE,RANDOM 87 mg/dL (74-106); POTASSIUM 4.5 mmol/L (3.5-5.1); SODIUM 143 mmol/L (136-145)
[2017-10-19 08:58] LABS: CREATININE 1.1 mg/dL (0.7-1.3)
[2017-10-19] MEDS ORDERED: ALLOPURINOL 300 MG TABLET (FP) PO SCH (10:00)
[2017-10-19] MEDS ORDERED: POLYETHYLENE GLYCOL 3350 119 GM BTL PO SCH (10:00)
[2017-10-19] MEDS ORDERED: ALLOPURINOL 100 MG TABLET (FP) PO SCH (10:00)
[2017-10-19] MEDS ORDERED: PANTOPRAZOLE 20 MG TABLET (FP) PO SCH (10:00)
[2017-10-19] MEDS: FAMOTIDINE 20 MG/50 ML IVPB 20 MG/50 ML MG IVPB SCH (10:20)
--- NOTE | 2017-10-19 10:30 | PN ---
Progress Note (short form) - Note Progress Note: 87 year old male known case of hypertension, hypercholesterolemia, s/p PPM, recent injury involving the right lower extremity. admitted with lower GI bleeding, which has not recurred. No SOB,chest pain or discomfort. Active Medications Allopurinol (Zyloprim -) 300 mg PO DAILY [facility] Atorvastatin Calcium (Lipitor -) 20 mg PO HS [facility] Famotidine/Sodium Chloride (Pepcid 20 Mg Premixed Ivpb -) 20 mg in 50 mls @ 100 mls/hr IVPB BID [facility] Last Admin: 10/18/17 21:35 Dose: 100 mls/hr Metronidazole (Flagyl -) 500 mg PO TID [facility] Last Admin: 10/19/17 06:07 Dose: 500 mg Pantoprazole Sodium (Protonix -) 20 mg PO BID [facility] Polyethylene Glycol (Miralax (For Daily Use) -) 17 gm PO DAILY [facility] 87 year old male in no distress, no pallor, cyanosis, clubbing or jaundice. Last Vital Signs Temp Pulse Resp BP Pulse Ox 97.8 F 64 20 130/70 96 10/19/17 06:00 10/19/17 06:00 10/19/17 06:00 10/19/17 06:00 10/18/17 20:00 NECK: Supplle, no JVD, carotids 2+, no bruits heard. HEART: S1 & S2 are normal, EFRAIN II/ at the 2nd right ICS endig in early systole. no gallops heard. LUNGS: Clear on auscultation. ABDOMEN: Soft, nontender, no organomegaly or masses appreciated. EXTREMITIES: Right calf and foot is bandaged, no left lower calf tenderness 2+ edema of the foot, chronic stasis changes. CBC, BMP 10/19/17 07:07 10/19/17 07:07 IMPRESSION: 1. Hypertension/HCVD. 2. S/p lower GI bleeding. 3. S/p PPM. 4. Exogenous obesity. 5. Hypercholesterolemia. RECOMMENDATIONS; 1. PPM interrogation according to protocal. 2. Current therapy. 3. Dicharge planned. 4. Out patient follow up.
[2017-10-19] MEDS ORDERED: MUPIROCIN 2% TOPICAL OINTMENT 22 GM TUBE TP SCH (13:00)
[2017-10-19 15:21] VITALS: BP 142/64; PULSE 65; TEMP 98
--- NOTE | 2017-10-19 15:28 | PN ---
Progress Note, Physician History of Present Illness: Reports no further rectal bleeding No c/o abdominal pain No N/V Afebrile WBC WNL - Current Medication List Current Medications: Active Medications Allopurinol (Zyloprim -) 300 mg PO DAILY [facility] Last Admin: 10/19/17 10:20 Dose: 300 mg Atorvastatin Calcium (Lipitor -) 20 mg PO HS [facility] Famotidine/Sodium Chloride (Pepcid 20 Mg Premixed Ivpb -) 20 mg in 50 mls @ 100 mls/hr IVPB BID [facility] Last Admin: 10/19/17 10:20 Dose: 100 mls/hr Metronidazole (Flagyl -) 500 mg PO TID [facility] Last Admin: 10/19/17 14:26 Dose: 500 mg Mupirocin (Bactroban 2% Ointment -) 1 applic TP BID [facility] Pantoprazole Sodium (Protonix -) 20 mg PO BID [facility] Last Admin: 10/19/17 10:20 Dose: 20 mg Polyethylene Glycol (Miralax (For Daily Use) -) 17 gm PO DAILY [facility] Last Admin: 10/19/17 10:20 Dose: 17 gm - Objective Vital Signs: Vital Signs Temperature 98 F 10/19/17 14:00 Pulse Rate 65 10/19/17 14:00 Respiratory Rate 20 10/19/17 14:00 Blood Pressure 142/64 10/19/17 14:00 O2 Sat by Pulse Oximetry (%) 96 10/18/17 20:00 Constitutional: Yes: No Distress, Obese Eyes: Yes: Conjunctiva Clear Cardiovascular: Yes: Regular Rate and Rhythm, S1, S2 Respiratory: Yes: CTA Bilaterally Gastrointestinal: Yes: Normal Bowel Sounds, Soft, Abdomen, Obese. No: Tenderness Extremities: Yes: Other (Superficial R pretibial ulcer with fibrinous base. No purulent drainage or foul odor. + stasis dermatitis) Labs: CBC, BMP 10/19/17 07:07 10/19/17 07:07 INR, PTT INR 1.12 (0.82-1.09) 10/17/17 15:41 Assessment/Plan Hematochezia- resolved ? C difficile secondary to recent antibiotic therapy Non-healing R LE ulcer Continue flagyl 500mg po tid. Complete 10-14d course
[2017-10-19] MEDS ORDERED: ATORVASTATIN CA 10 MG TABLET (FP) PO SCH (22:00)
[2017-10-20 08:07] LABS: SERUM IRON SATURATION 31 % (15-55); TOTAL IRON BINDING CAPACITY 254 ug/dL (250-450); UIBC 175 ug/dL (111-343)
== END 2017-10-19 17:19 | disposition home or self-care (01) | DRG 394 ==
LOC: JER 14:53 → JERBED 21:31 → UNDOADMIN 22:36 → J4W 10-18 11:02
PROVIDERS: ADMIT Internal Medicine; ATTEND Family Medicine
DX: K64.9 Unspecified hemorrhoids (principal); I31.3 Pericardial effusion (noninflammatory); Z68.41 Body mass index [BMI] 40.0-44.9, adult; K57.30 Diverticulosis of large intestine without perforation or abscess without bleeding; K80.20 Calculus of gallbladder without cholecystitis without obstruction; I10 Essential (primary) hypertension; I71.9 Aortic aneurysm of unspecified site, without rupture; E66.09 Other obesity due to excess calories; K63.5 Polyp of colon; K21.9 Gastro-esophageal reflux disease without esophagitis; E78.5 Hyperlipidemia, unspecified; Z86.010 Personal history of colon polyps; K29.70 Gastritis, unspecified, without bleeding; K27.9 Peptic ulcer, site unspecified, unspecified as acute or chronic, without hemorrhage or perforation; Z87.891 Personal history of nicotine dependence; M10.9 Gout, unspecified; I25.10 Atherosclerotic heart disease of native coronary artery without angina pectoris; N28.1 Cyst of kidney, acquired; R19.7 Diarrhea, unspecified; Z95.0 Presence of cardiac pacemaker; Z80.0 Family history of malignant neoplasm of digestive organs; R60.0 Localized edema; E66.9 Obesity, unspecified; I83.028 Varicose veins of left lower extremity with ulcer other part of lower leg; N20.0 Calculus of kidney
CPT/HCPCS: 36415; 71046-TC-FY; 74176-TC; 80048; 80053; 81003; 82272; 82607; 82728; 82746; 83540; 83550; 83735; 84100; 84155; 84165; 85025; 85044; 85610; 85730; 86140; 86850; 86900; 86901; 93005; 93010; 93306-TC; 99285-25